=== PATIENT | female | born 1955 | race Caucasian/White ===

== ENCOUNTER 2017-08-17 09:23 | Emergency (ER) | payer OTHER ==
[~2017-08-17] VITALS: Ht 154.9 cm; Wt 50.0 kg
[2017-08-17 12:50] VITALS: BP 118/74
== END 2017-08-17 13:09 | disposition home or self-care (01) ==
LOC: EMS 09:24
DX: G89.29 Other chronic pain (principal); M54.5 Low back pain; F11.20 Opioid dependence, uncomplicated; Z76.0 Encounter for issue of repeat prescription; F17.210 Nicotine dependence, cigarettes, uncomplicated; Z88.2 Allergy status to sulfonamides; Z88.8 Allergy status to other drugs, medicaments and biological substances
CPT/HCPCS: 99283; 99406

== ENCOUNTER 2018-03-14 14:11 | Emergency (ER) | payer OTHER ==
[~2018-03-14] VITALS: Ht 154.9 cm; Wt 47.7 kg
[2018-03-14 15:21] VITALS: BP 120/79
== END 2018-03-14 15:39 | disposition home or self-care (01) ==
LOC: EMS 14:12
DX: M54.5 Low back pain (principal); G89.29 Other chronic pain; F17.210 Nicotine dependence, cigarettes, uncomplicated; Z88.2 Allergy status to sulfonamides; Z88.1 Allergy status to other antibiotic agents

== ENCOUNTER 2018-04-07 13:47 | Emergency (ER) | payer OTHER ==
[~2018-04-07] VITALS: Ht 154.9 cm; Wt 47.7 kg
[2018-04-07 14:57] VITALS: BP 125/72
== END 2018-04-07 16:29 | disposition left against medical advice (07) ==
LOC: EMS 13:49
DX: G89.29 Other chronic pain (principal); M54.5 Low back pain; F17.210 Nicotine dependence, cigarettes, uncomplicated; Z76.5 Malingerer [conscious simulation]; Z88.8 Allergy status to other drugs, medicaments and biological substances
CPT/HCPCS: 99406

== ENCOUNTER 2018-06-07 11:56 | Emergency (ER) | payer OTHER ==
[~2018-06-07] VITALS: Ht 154.9 cm; Wt 48.6 kg
[2018-06-07 12:00] VITALS: BP 102/69
== END 2018-06-07 14:25 | disposition left against medical advice (07) ==
LOC: EMS 11:57
DX: G89.29 Other chronic pain (principal); M54.5 Low back pain; F11.10 Opioid abuse, uncomplicated; Z88.2 Allergy status to sulfonamides; Z88.8 Allergy status to other drugs, medicaments and biological substances

== ENCOUNTER 2018-11-24 11:46 | Emergency (ER) | payer OTHER ==
[~2018-11-24] VITALS: Ht 154.9 cm; Wt 50.0 kg
[2018-11-24 11:51] VITALS: BP 154/104
[2018-11-24] MEDS ORDERED: IBUP100T54 PO (11:56)
== END 2018-11-24 12:30 | disposition home or self-care (01) ==
LOC: EMS 11:47
DX: G89.29 Other chronic pain (principal); M54.9 Dorsalgia, unspecified; R03.0 Elevated blood-pressure reading, without diagnosis of hypertension; F17.210 Nicotine dependence, cigarettes, uncomplicated; Z88.2 Allergy status to sulfonamides; Z88.8 Allergy status to other drugs, medicaments and biological substances; Z53.20 Procedure and treatment not carried out because of patient's decision for unspecified reasons